=== PATIENT | female | born 1970 | race Caucasian/White ===

== ENCOUNTER 2021-11-14 16:41 | Emergency (ER) | payer BC, SELFPAY ==
--- NOTE | ~2021-11-14 | CT_ITS ---
EXAMINATION: CT abdomen pelvis wo con DATE: 11/14/2021 18:24 INDICATION: Abdomen pain for one week. Flank pain. TECHNIQUE: Computed tomography (CT) of the abdomen and pelvis was performed without intravenous contr ast. The dose-length product was 486.14 mGy-cm. Automated exposure control and iterative reconstructi on technique were employed COMPARISON: None. FINDINGS: Lung bases unremarkable. No significant pleural effusion. Trace pericardial effusion. Heart size normal. No significant vascular abnormality. No lymphadenopathy. Status post cholecystectomy. The liver, sple en, pancreas, adrenal glands are unremarkable. Kidneys within normal limits. No significant hydroneph rosis. Bladder is mildly thickened which may be due to underdistention or cystitis. No free air. Smal l amount of free fluid in the pelvis. Small fat-containing umbilical hernia. No acute osseous abnorma lity. The appendix is not positively visualized. There is no pericecal inflammatory change to sugges t appendicitis. IMPRESSION: 1. Mild bladder wall thickening which may be due to underdistention, although cystitis should be cons idered in the appropriate clinical setting. Reviewed, dictated and finalized at location A. IMPRESSION: 1. Mild bladder wall thickening which may be due to underdistention, although c ystitis should be considered in the appropriate clinical setting.
[2021-11-14 16:47] VITALS: BP 150/77; PULSE 83; RESP 18; TEMP 36.2; O2SAT 100
[2021-11-14 16:56] LABS: Basophils Percent Auto 0.8 % (0.2-1.2); Eosinophils Absolute Auto 0.1 K/mm3 (0-0.3); Eosinophils Percent Auto 2.7 % (0-4.4); Hematocrit 40.2 % (37.0-47.0); Hemoglobin 13.4 g/dL (12.0-15.0); Immature Granulocyte Absolute 0.01 K/mm3 (0.00-0.031); Immature Granulocyte Percent A 0.2 % (0-0.5); Lymphocytes Absolute Auto 1.82 K/mm3 (0.9-3.2); Lymphocytes Percent Auto 34.7 % (18.3-44.2); Mean Corpuscular HGB Conc 33.3 g/dl (32-36); Mean Corpuscular Hemoglobin 30.3 pg (26-34); Mean Platelet Volume 10.4 fl (7.4-10.4); Monocytes Absolute Auto 0.5 K/mm3 (0.1-0.6); Monocytes Percent Auto 10.3 % (2.6-8.5); Neutrophils Absolute Auto 2.7 K/mm3 (1.3-6.7); Neutrophils Percent Auto 51.3 % (45.5-73.1); Platelet Count Result 283 k/mm3 (150-375); Red Blood Count 4.42 M/mm3 (4.2-5.4); White Blood Count 5.2 K/mm3 (4.5-10.0)
[2021-11-14 17:06] LABS: Alanine Aminotransferase 10 U/L (6-35); Albumin Level 4.2 g/dL (3.5-5.1); Alkaline Phosphatase 69 U/L (38-126); Anion Gap 6 mmol/L (8-16); Aspartate Amino Transferase 25 U/L (14-36); Bilirubin,Total 0.7 mg/dL (0.2-1.3); Blood Urea Nitrogen 12 mg/dL (7-17); Calcium 8.6 mg/dL (8.4-10.2); Carbon Dioxide 31 mmol/L (22-30); Chloride 97 mmol/L (98-107); Estimated CRCL calculation 69 ml/min; Estimated Glomerular Filt Rate > 60; Glucose 301 mg/dL (65-110); Potassium 3.7 mmol/L (3.4-5.0); Sodium 134 mmol/L (137-145)
[2021-11-14 17:21] LABS: Appearance Urine Clear (Clear); Bilirubin Urine 1+ (Negative); Blood Urine Negative (Negative); Color Urine Yellow (Yellow); Glucose Urine UA 2+ mg/dL (Negative); Ketones Urine 2+ mg/dL (Negative); Leukocyte Esterase Ur Negative LEU/UL (Negative); Nitrate Urine Negative (Negative); Protein Urine Negative (Negative); Urobilinogen Urine 0.2 mg/dL (<2.0); pH Urine 5.5 (5.0-9.0)
[2021-11-14 17:25] LABS: Add Urine Microscopic? YES; RBC Urine 0-2 /hpf (0-2); Squamous Epithelial Cell Urine Occasional /hpf (Few); WBC Urine 0-3 /hpf
--- NOTE | 2021-11-14 18:11 | ED.ABDPAIN ---
HPI - Abdominal Pain General Chief Complaint: Abdominal Pain Stated Complaint: abd pain Time Seen by Provider: 11/14/21 18:05 History of Present Illness HPI narrative: 51-year-old female presents the emergency room complaints of left upper abdominal pain that radiates into her left flank has been present for 1 week. Patient states the pain is burning, and is worse at night. Patient denies any nausea, vomiting, diarrhea or constipation. Patient states he is a type I diabetic and has been noncompliant with her insulin and managing her glucose readings over the past couple of months. Patient also states that she is a regular heavy alcohol user. Patient states over the course of the last week she has been using NSAIDs, believing this is go to relieve her pain. Patient denies fever. Patient mitts to history of cholecystectomy and . Related Data Allergies Allergy/AdvReac Type Severity Reaction Status Date / Time Sulfa (Sulfonamide Allergy Hives Verified 11/14/21 18:25 Antibiotics) Review of Systems Review of Systems: CONSTITUTIONAL: Denies fever, chills, or sweats. EYES: Denies visual changes, redness, or discharge. ENT: Denies rhinorrhea, congestion, sore throat, or otalgia. CARDIOVASCULAR: Denies chest pain, palpitations, or edema. RESPIRATORY: Denies cough or dyspnea. GASTROINTESTINAL: Reports left upper quadrant and left flank pain GENITOURINARY: Denies dysuria or hematuria. SKIN: Denies rash or itching. MUSCULOSKELETAL: Denies back pain, joint pain, or myalgia. NEUROLOGIC: Denies headache, numbness, dizziness, or weakness. PSYCHIATRIC: Denies anxiety or depression. Exam Narrative: GENERAL: Well-appearing, well-nourished, and in no acute distress. HEAD: Normocephalic, atraumatic. EYES: PERRLA and EOMI. CHEST: Clear to auscultation. No respiratory distress. No wheezes rales or rhonchi HEART: Regular rate and rhythm. No murmur heard. Normal peripheral pulses. ABDOMEN: Soft, left upper quadrant tenderness, left CVA tenderness nondistended, normal active bowel sounds. EXTREMITIES: Normal range of motion. No edema. SKIN: Warm, dry, no rash. NEURO: No focal deficits. Alert and oriented x3. PSYCH: Normal mood and affect. Course Course Emergency Course: 1954: On reevaluation, patient states that the GI cocktail did not help at all. Patient is now complaining of left mid thoracic back pain that is worse with she moves instead of left flank pain that radiates into the abdomen. On further exam, patient has point tenderness to the left posterior lateral 10th rib. Again patient denies any recent injury or trauma. Pain is aggravated with movement and inspiration. Vital Signs Vital signs: Vital Signs Temperature 36.2 C L 11/14/21 16:47 Pulse Rate 83 11/14/21 16:47 Respiratory Rate 18 11/14/21 16:47 Blood Pressure 150/77 H 11/14/21 16:47 Pulse Oximetry 100 11/14/21 16:47 Oxygen Delivery Room Air 11/14/21 16:47 Temperature 36.2 C L 11/14/21 16:47 Pulse Rate 83 11/14/21 16:47 Respiratory Rate 18 11/14/21 16:47 Blood Pressure 150/77 H 11/14/21 16:47 Pulse Oximetry 100 11/14/21 16:47 Oxygen Delivery Room Air 11/14/21 16:47 MDM - Abdominal Pain MDM Narrative Medical decision making narrative: 51-year-old female presented to the emergency room complaints of left flank/left mid thoracic pain that radiated into the abdomen. No back pain red flags on history or physical. Presentation not consistent with any type of malignancy, fracture, or pneumonia. CT abdomen pelvis displayed a mild bladder wall thickening likely due to underdistention, although cystitis should be considered. Urinalysis shows no evidence of urinary tract infection at this time. Pain was not relieved with a GI cocktail or Protonix, so morphine was given. Morphine relieved patient's pain. Pain is likely due to muscle skeletal at this time. Lab Data Attestation: I reviewed the patient's lab results. Result di
[2021-11-14] MEDS: SODIUM CHLORIDE 0.9% IV 1,000 ML 999 ML IV CONT ×2 (18:29→19:04)
[2021-11-14] MEDS: PANTOPRAZOLE SODIUM IV 40 MG VIAL IV PUSH (18:29)
[2021-11-14 18:33] LABS: Ethanol < 10 mg/dL (<10)
[2021-11-14 18:35] LABS: Hemoglobin A1C 11.4 % (<5.7); Lipase 54 U/L (23-300)
[2021-11-14] MEDS: BELLADONNA ALK/PHENOB ELIX 10 ML, MAG HYDROX/ALUMINUM HYD/SIMETH 30 ML, LIDOCAINE HCL 2... PO (19:02)
[2021-11-14] MEDS: MORPHINE SULFATE (*CRX) 4 MG/ML INJ IV PUSH (20:43)
[2021-11-14] MEDS: ONDANSETRON INJ 4 MG/2 ML VIAL IV PUSH (20:44)
[2021-11-14 21:50] VITALS: BP 160/94; PULSE 75; RESP 20; O2SAT 99
== END 2021-11-14 22:44 | disposition home or self-care (01) ==
PROVIDERS: Emergency Medicine; Emergency Provider Nurse Practitioner Family
DX: M54.6 Pain in thoracic spine (principal); R10.12 Left upper quadrant pain; E10.9 Type 1 diabetes mellitus without complications; T38.3X6A Underdosing of insulin and oral hypoglycemic [antidiabetic] drugs, initial encounter; Z91.14 Patient's other noncompliance with medication regimen; R93.41 Abnormal radiologic findings on diagnostic imaging of renal pelvis, ureter, or bladder
CPT/HCPCS: 36415; 74176; 80053; 80307; 81001; 81025; 83036; 83690; 85025; 96361; 96374; 96375; 99285; A9270; C9113; J2270; J2405; J7030